=== PATIENT | female | born 1945 | race Caucasian/White ===

== ENCOUNTER 2018-05-08 09:23 | Inpatient (IN) | payer MEDICARE ==
[~2018-05-08] VITALS: Ht 160 cm; Wt 86.5 kg
--- NOTE | ~2018-05-08 | PN ---
PATIENT:SAMANTHA MARTINEZ MEDICAL RECORD: [id number] LOCATION:[facility] ADMISSION DATE: 05/08/18 PROGRESS NOTE DATE OF SERVICE: 05/14/2018 SUBJECTIVE: The patient's case was discussed with staff. She has no new complaint. OBJECTIVE: The patient has a euthymic mood and no thoughts of self-harm. She insists she does not abuse benzodiazepine and does not need any kind of substance abuse treatment. ASSESSMENT: No change in diagnoses. PLAN: The patient has no evidence of acute or direct dangerousness and will be transitioned out of the hospital today. Her daughter from [place] is here to pick her up. She is going to supervise Samantha's medications for her and appointments have been made at the [facility] for her to receive counseling. TRANSINT:[id number] Voice Confirmation ID: [id number] DOCUMENT ID: [id number] LIZ BAJWA MD at 1416 CC: [id number] DICTATION DATE: 05/14/18 1637 ANESTHESIOLOGIST: 05/14/18 1733 DIS IN 05/14/18 [facility] [address] [place] [address]
--- NOTE | ~2018-05-08 | PN ---
PATIENT:PRABHAKAR MARTINEZ MEDICAL RECORD: [id number] LOCATION:[facility] ADMISSION DATE: 05/08/18 PROGRESS NOTE DATE OF SERVICE: 05/11/2018 SUBJECTIVE: The patient's case was discussed with staff. She has no new complaint. OBJECTIVE: The patient is in good behavioral control with limited insight about her condition. She generally tolerates her medicines well. Eye contact is fair. ASSESSMENT: No change in diagnoses. PLAN: Supportive and educational interventions were made. The patient is going to consider going to [place] to live with her daughter. TRANSINT:[id number] Voice Confirmation ID: [id number] DOCUMENT ID: [id number] LIZ BAJWA MD at 1234 CC: [id number] DICTATION DATE: 05/11/18 1452 SUPPLY CHAIN ENGINEER: 05/11/18 1501 ADM IN [place] [id number] [place] [address]
--- NOTE | ~2018-05-08 | PN ---
PATIENT:PRABHAKAR MARTINEZ MEDICAL RECORD: [id number] LOCATION:[facility] ADMISSION DATE: 05/08/18 PROGRESS NOTE DATE OF SERVICE: 05/10/2018 SUBJECTIVE: The patient's case was discussed with staff. She has no new complaint. OBJECTIVE: The patient is in good behavioral control with limited insight about her condition. She is tolerating her medicines well. ASSESSMENT: No change in diagnoses. PLAN: Current medicines have been reviewed. I am going to increase the dose of the Prozac slightly. Her long-term prognosis is guarded. TRANSINT:[id number] Voice Confirmation ID: [id number] DOCUMENT ID: [id number] LIZ BAJWA MD at 1341 CC: [id number] DICTATION DATE: 05/10/18 1527 PAVING SUPERVISOR: 05/10/18 1546 ADM IN [place] [id number] [place] [id number]
--- NOTE | ~2018-05-08 | PN ---
PATIENT:PRABHAKAR MARTINEZ MEDICAL RECORD: [id number] LOCATION:[facility] ADMISSION DATE: 05/08/18 PROGRESS NOTE DATE OF SERVICE: 05/13/2018 SUBJECTIVE: The patient's case was discussed with staff. She has no new complaint. OBJECTIVE: The patient has a euthymic mood and is having no thought disorganization or suicidal thoughts. ASSESSMENT: No change in diagnoses. PLAN: Supportive and educational interventions were made. Long-term prognosis is guarded. She is requesting discharge tomorrow. I am not sure if everything is in place, but she says she wants to go whether it is or not. She has no symptoms that would represent a direct risk to herself or others. I have counseled her about the Xanax, which she says that she absolutely must have. She has a refill that her primary care physician will have available for her on the . I will give her a few days as a patch prescription but no more. TRANSINT:[id number] Voice Confirmation ID: [id number] DOCUMENT ID: [id number] LIZ BAJWA MD at 1351 CC: [id number] DICTATION DATE: 05/13/18 1300 PUBLICATIONS DISTRIBUTION CLERK: 05/13/18 2030 ADM IN [facility] [address] [place] [address]
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
--- NOTE | ~2018-05-08 | PN ---
PATIENT:PRABHAKAR MARTINEZ MEDICAL RECORD: [id number] LOCATION:[facility] ADMISSION DATE: 05/08/18 PROGRESS NOTE DATE OF SERVICE: 05/09/2018 SUBJECTIVE: The patient's case was discussed with staff. She has no new complaint. OBJECTIVE: The patient denies intent to harm herself. She is generally tolerating her medicines well. ASSESSMENT: No change in diagnoses. PLAN: Brief supportive and educational interventions were made. The patient's long-term prognosis is guarded. TRANSINT:[id number] Voice Confirmation ID: [id number] DOCUMENT ID: [id number] LIZ BAJWA MD at 1407 CC: [id number] DICTATION DATE: 05/09/18 1521 HEALTH CARE COORDINATOR: 05/09/18 1529 ADM IN [place] [id number] [place] [address]
--- NOTE | ~2018-05-08 | PN ---
PATIENT:PRABHAKAR MARTINEZ MEDICAL RECORD: [id number] LOCATION:[facility] ADMISSION DATE: 05/08/18 PROGRESS NOTE DATE OF SERVICE: 05/12/2018 SUBJECTIVE: The patient's case was discussed with staff. She has no new complaint. OBJECTIVE: The patient denies intent to harm herself or others. She tolerates her medicines well. Eye contact is fair. ASSESSMENT: No change in diagnoses. PLAN: Supportive and educational interventions were made. Long-term prognosis is guarded. TRANSINT:[id number] Voice Confirmation ID: [id number] DOCUMENT ID: [id number] LIZ BAJWA MD at 1226 CC: [id number] DICTATION DATE: 05/12/18 1300 SCHOOL PSYCHOLOGY SPECIALIST: 05/12/18 1314 ADM IN [place] [id number] [place] [address]
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
[2018-05-08] MEDS ORDERED: COZAAR25 MG PO (09:30)
[2018-05-08] MEDS ORDERED: XANAX0.5 MG PO (09:31)
[2018-05-08 09:57] LABS: BASOPHILS 0.2 % (0-2); EOSINOPHILS 1.5 % (0-7); HEMATOCRIT 39.5 % (36.0-48.0); HEMOGLOBIN 12.8 g/dL (12-16); IMMATURE GRANULOCYTES 0.1 % (0-5); LYMPHOCYTES 20.5 % (15-50); MCH 28.4 pg (26.0-34.0); MCHC 32.4 g/dL (31.0-37.0); MCV 87.8 fL (80.0-100.0); MEAN PLATELET VOLUME 9.6 fL (7.4-10.4); MONOCYTES 9.3 % (2-11); NEUTROPHILS 68.4 % (40-80); PLATELET COUNT 243 10x3/uL (130-400); RDW 13.5 % (11.5-14.5); WBC 8.2 10x3/uL (4.8-10.8)
[2018-05-08 10:05] LABS: APPEARANCE CLOUDY (CLEAR); COLOR YELLOW (YELLOW)
[2018-05-08 10:06] LABS: BILIRUBIN NEGATIVE (NEGATIVE); GLUCOSE NEGATIVE (NEGATIVE); KETONE NEGATIVE (NEGATIVE); NITRITE NEGATIVE (NEGATIVE); PROTEIN NEGATIVE (NEGATIVE); SPECIFIC GRAVITY 1.015 (1.005-1.020)
[2018-05-08 10:09] LABS: BACTERIA MANY /hpf (NONE SEEN); MUCUS <1+ /lpf (NONE SEEN); RED CELLS - URINE OCC /hpf (0-5)
[2018-05-08 10:16] LABS: UDS - AMPHET NEGATIVE QUAL (NEGATIVE); UDS - BARB NEGATIVE QUAL (NEGATIVE); UDS - BENZO NEGATIVE QUAL (NEGATIVE); UDS - COCAINE NEGATIVE QUAL (NEGATIVE); UDS - OPIATE NEGATIVE QUAL (NEGATIVE); UDS - PCP NEGATIVE QUAL (NEGATIVE)
[2018-05-08 10:18] LABS: ALBUMIN 3.9 g/dL (3.4-5.0); ANION GAP 10.5 mmol/L (8-16); BILIRUBIN - TOTAL 1.12 mg/dL (0.2-1.3); CALCIUM 9.6 mg/dL (8.5-10.1); CARBON DIOXIDE 30.1 mmol/L (21.0-32.0); CREATININE - SERUM 1.2 mg/dL (0.6-1.3); POTASSIUM - SERUM 3.6 mmol/L (3.5-5.1); PROTEIN - SERUM 8.1 g/dL (6.4-8.2)
[2018-05-08 10:25] LABS: THYROID STIMULATING HORMONE 0.24 uIU/mL (0.36-3.74)
[2018-05-08 10:25] LABS: UDS - THC NEGATIVE QUAL (NEGATIVE)
[2018-05-08 12:48] VITALS: BP 153/78; BMI 33.8
[2018-05-08] MEDS ORDERED: CELEXA20 MG PO (13:17)
[2018-05-08] MEDS ORDERED: ULTRAM50 MG PO (13:19)
[2018-05-08 13:25] VITALS: BMI 33.8
[2018-05-08 14:19] LABS: CHOL - HDL RATIO 3.8 ratio (2.3-4.1); LDL-HDL RATIO 2.4 ratio (1.5-3.5); THYROID STIMULATING HORMONE 0.21 uIU/mL (0.36-3.74)
[2018-05-08 20:46] VITALS: BP 147/73
[2018-05-08 21:30] VITALS: BP 147/73
[2018-05-09 10:28] VITALS: BP 148/84
[2018-05-09 10:36] VITALS: Ht 160 cm; Wt 86.5 kg
[2018-05-09 20:27] VITALS: BP 148/72
[2018-05-10 10:09] VITALS: BP 163/85
[2018-05-10 19:38] VITALS: BP 147/65
[2018-05-11 10:41] VITALS: BP 186/97
[2018-05-11 20:00] VITALS: BP 173/83
[2018-05-12 10:15] VITALS: BP 147/75
[2018-05-12 20:00] VITALS: BP 172/87
[2018-05-13 11:02] VITALS: BP 185/89
[2018-05-13] MEDS ORDERED: COZAAR50 MG PO (12:56)
[2018-05-13] MEDS ORDERED: SEROQUEL25 MG PO (12:57)
[2018-05-13] MEDS ORDERED: XANAX0.25 MG PO (12:57)
[2018-05-13] MEDS ORDERED: ACETAMINOPHEN500 M1 PO (12:57)
[2018-05-13] MEDS ORDERED: FLORAJEN3 CAPS460 MG PO (12:57)
[2018-05-13] MEDS ORDERED: PROZAC20 MG PO (12:57)
[2018-05-13] MEDS ORDERED: VITAMIN B-121000 MCG PO (12:58)
[2018-05-13] MEDS ORDERED: VITAMIN D31000 UNI2 PO (12:58)
[2018-05-14 07:00] VITALS: BP 186/90
== END 2018-05-14 14:40 | disposition home or self-care (01) | DRG 885 ==
LOC: D.ER 09:23 → D.PSYCH 11:57
PROVIDERS: Emergency Medicine; Psychiatry & Neurology Psychiatry
DX: F33.3 Major depressive disorder, recurrent, severe with psychotic symptoms (principal); N39.0 Urinary tract infection, site not specified; F41.1 Generalized anxiety disorder; I10 Essential (primary) hypertension; G89.29 Other chronic pain; M54.9 Dorsalgia, unspecified; M79.672 Pain in left foot; E05.90 Thyrotoxicosis, unspecified without thyrotoxic crisis or storm; E53.8 Deficiency of other specified B group vitamins; E55.9 Vitamin D deficiency, unspecified